=== PATIENT | male | born 1995 | race Caucasian/White ===

== ENCOUNTER 2017-04-20 20:20 | Emergency (ER) | payer BC ==
[~2017-04-20] VITALS: Ht 193 cm; Wt 86.0 kg
[2017-04-20 20:22] VITALS: BP 140/80; PULSE 87; RESP 15; TEMP 98.1; O2SAT 98
[2017-04-20] MEDS ORDERED: LAMO100T PO (22:39)
[2017-04-20] MEDS ORDERED: SULFAMETHOXAZOLE-TRIMETHOPRIM DS 800-160 MG TAB PO ONE (23:00)
[2017-04-20] MEDS ORDERED: BACT800T5 PO (23:00)
--- NOTE | 2017-04-20 23:08 | PD ---
HPI Chief Complaint: Complaint Time Seen by Provider: 22:47 Travel History International Travel<30 days: No Contact w/Intl Traveler<30days: No Traveled to known affect area: No History of Present Illness HPI 21-year-old white male presents to emergency Department with complaints of sores on his penis and scrotum. This is been present now for the past few days. The lesions are mildly painful. He denies any vesicles prior to the development of lesions. He denies any urethral discharge. The patient does admit to shaving a few days before the development of the rash. The patient had went to [facility] and was seen and was diagnosed with herpes. The patient states that his lesions do not resemble any herpes that he' s been aware of. He came in for a second opinion. Patient states that he had a complete battery of STD testing 6 months ago which had included herpes testing. He states that his HIV and syphilis were negative. Patient denies any urethral symptoms. PFSH Past Medical History Anxiety: Yes Diminished Hearing: No Inguinal Hernia: Yes Tetanus Vaccination: < 5 Years Influenza Vaccination: Yes Past Surgical History Tonsillectomy: Yes Social History Alcohol Use: Yes (social) Tobacco Use: No Substance Use: No Allergies-Medications (Allergen,Severity, Reaction): Coded Allergies: No Known Allergies (Verified Allergy, Unknown, 04/20/17) Reported Meds & Prescriptions Reported Meds & Active Scripts Active Bactrim DS (Sulfamethoxazole-Trimethoprim) 800-160 Mg Tab 1 Tab PO BID Reported Lamotrigine 100 Mg Tab 75 Mg PO DAILY Review of Systems Except as stated in HPI: all other systems reviewed are Neg Physical Exam Narrative GENERAL: This is a well-nourished, well-developed patient, in no apparent distress. The patient was examined with [facility] nurse present. SKIN: Patient has multiple circular lesions on the scrotum, shaft of the penis. They are weeping. There are mildly erythematous and tender to touch. There is no abscess. There is no vesicles., ecchymoses or lesions. Warm and dry. HEAD: Atraumatic. Normocephalic. EYES: PERRL, EOMI, no discharge or injection. No scleral icterus. EARS: Clear NOSE: Nasal turbinates appear normal. THROAT: Mucosa pink and moist. Airway patent. NECK: Trachea midline. supple, moves head freely. LUNGS: Clear to auscultation. CV: Regular in rhythm. ABDOMEN: Soft nontender. EXT: No clubbing cyanosis or edema. Data Data Last Documented VS Vital Signs Date Time Temp Pulse Resp B/P (MAP) Pulse Ox O2 Delivery O2 Flow Rate FiO2 04/20/17 22:39 20 04/20/17 20:22 98.1 87 140/80 (100) 98 Room Air Orders Orders Sulfamet-Trimeth Ds 800-160 Mg (Bactrim (04/20/17 23:00) MDM Medical Decision Making Medical Screen Exam Complete: Yes Emergency Medical Condition: Yes Medical Record Reviewed: Yes Differential Diagnosis MDM: Moderate Differential diagnoses: Chlamydia, gonorrhea, syphilis, chancroid, hepatitis, HIV, herpes, MRSA Narrative Course The patient's lesions do not look like herpes. The patient is lesions do not look like syphilis. Patient's lesions look more associated with skin infections from MRSA from shaving. The patient is encouraged to take Bactrim. He is given a prescription here in the ER. The patient states that he had filled his prescription for acyclovir. The patient was apprised that he may take this but I do not feel that his lesions are consistent with herpes. He is encouraged to follow-up with his doctor to have repeat STD evaluation including syphilis, herpes. Diagnosis Primary Impression: Genital lesion, male Patient Instructions: General Instructions Additional Instructions: Rest. No intercourse until all lesions are completely healed and STD testing has been completed. Local wound care with soap and water and keep clean and dry. Bactrim DS. Follow-up with your doctor in the next 2-3 days for recheck. Recommend syphilis , herpes and HIV testing. Med/Other Pt SpecificInfo: Prescription(s) given Scripts Sulfamethoxazole-Trimethoprim (Bactrim DS) 800-160 Mg Tab 1 TAB PO BID for Infection, #20 TAB 0 Refills Prov: Gen Iqbal MD 04/20/17 Disposition: 01 DISCHARGE HOME Condition: Stable Franco Pollard Apr 20, 2017 23:08
== END 2017-04-20 23:13 | disposition home or self-care (01) ==
LOC: NEPD 20:20
DX: L98.9 Disorder of the skin and subcutaneous tissue, unspecified (principal); Z86.59 Personal history of other mental and behavioral disorders; Z87.39 Personal history of other diseases of the musculoskeletal system and connective tissue
CPT/HCPCS: 99283